=== PATIENT | female | born 1960 | race Caucasian/White ===

== ENCOUNTER 2023-01-23 14:12 | Emergency (ER) | payer OTHER, SELFPAY ==
[2023-01-23] VITALS (25 sets, daily range): BP systolic 121–178; BP diastolic 64–96; PULSE 80–108; RESP 16; TEMP 37.2–38.7; O2SAT 88–96; BMI 35.0
[2023-01-23 14:49] LABS: Appearance Urine Cloudy (Clear); Bilirubin Urine Negative (Negative); Blood Urine 3+ (Negative); Color Urine Yellow (Yellow); Glucose Urine Negative (Negative); Ketones Urine Negative (Negative); Leukocyte Esterase Urine 3+ (Negative); Nitrite Urine Positive (Negative); Protein Urine 3+ (Negative); Specific Gravity Urine 1.015 (1.000-1.030); Urobilinogen Urine 0.2 (0.2-1.0); pH Urine 6.5 (5.0-8.5)
[2023-01-23 15:13] LABS: Bacteria Urine Many; WBC Urine >100 (0-5)
[2023-01-23 15:58] LABS: Lactate* 1.1 mmol/L (0.5-1.9)
--- NOTE | 2023-01-23 16:01 | ED.GENADULT ---
HPI - General Adult General Chief complaint: Flank Pain Stated complaint: Back Pain Time Seen by Provider: 01/23/23 14:47 History of Present Illness HPI narrative: Pt c/o bilateral flank pain, urinary frequency, urinary retention, chills, fever, and vomiting for about a week. Hx multiple UTIs, last dx UTI in December of 2022. Pt states symptoms usually resolve for a week after I take antibiotics and then I'm right back to having symptoms again . This has been repeating over the last two years. Denies hx kidney stones. 62-year-old woman presenting to the emergency department with complaint of frequency and low back pain. Does have a history of relatively frequent urinary tract infections although she notes that the last 1 she thought she had turned out to be negative urinalysis. Yesterday her stomach started to hurt. Subsequently has had increasing low back pain. This particularly worried her since she has never felt any of that with her urinary tract infections in the past. She does have frequency; less dysuria. She was particularly chilled yesterday evening. Has had some diarrhea recently. No measured fever Related Data Home Medications Medication Instructions Recorded Confirmed atorvastatin 10 mg tablet 10 mg PO DAILY 01/23/23 01/23/23 levothyroxine 100 mcg tablet 100 mcg PO DAILY 01/23/23 01/23/23 Allergies Allergy/AdvReac Type Severity Reaction Status Date / Time acetaminophen [From Vicodin] AdvReac Mild Nausea Verified 01/23/23 14:30 doxycycline AdvReac Mild Nausea Verified 01/23/23 14:30 hydrocodone [From Vicodin] AdvReac Mild Nausea Verified 01/23/23 14:30 Review of Systems Status of ROS: Reports: 6 or more systems reviewed and unremarkable except as noted in History and below PFSH [facility] Social History Smoking Status: Never smoker Do you use any of these nicotine containing products: None Second hand tobacco smoke exposure: No How often do you have a drink containing alcohol: 2-3 times a week AUDIT-C Alcohol total score: 3 Non-prescribed substance use: denies use Exam Narrative: Exam Narrative: Pleasant. NAD other than looks a generally little uncomfortable. Face is a little flushed. Oropharynx is sticky. Lungs are clear. She has a lidocaine patch applied in the mid low back. She does not have tenderness about the SI joints. Abdomen is soft diffusely mildly comfortable/tender to palpation. Extremities are without edema. She is well-perfused. Heart is in an elevated rate but regular rhythm. Lungs are clear. Cranial nerves 2-12 intact. Breathing easily and easily conversant. Const: Vital Signs, click to edit/add: Vital Signs - 24 hr 01/23/23 14:24 01/23/23 15:44 01/23/23 15:45 Temperature 101.6 F H Pulse Rate 98 95 Pulse Rate [Pulse Oximeter] 108 H Respiratory Rate 16 Blood Pressure Blood Pressure [Ri ght Upper Arm] 178/79 H Pulse Oximetry 96 94 94 Oxygen Delivery Me thod Room Air 01/23/23 16:00 01/23/23 16:01 01/23/23 16:15 Temperature Pulse Rate 94 94 93 Pulse Rate [Pulse Oximeter] Respiratory Rate Blood Pressure 130/96 H Blood Pressure [Ri ght Upper Arm] Pulse Oximetry 91 94 88 Oxygen Delivery Me thod 01/23/23 16:30 01/23/23 16:31 01/23/23 16:32 Temperature Pulse Rate 92 89 91 Pulse Rate [Pulse Oximeter] Respiratory Rate Blood Pressure 129/68 Blood Pressure [Ri ght Upper Arm] Pulse Oximetry 90 91 89 Oxygen Delivery Me thod 01/23/23 16:41 01/23/23 16:45 01/23/23 17:00 Temperature 98.9 F Pulse Rate 92 85 Pulse Rate [Pulse Oximeter] Respiratory Rate Blood Pressure Blood Pressure [Ri ght Upper Arm] Pulse Oximetry 89 91 Oxygen Delivery Me thod 01/23/23 17:01 01/23/23 17:02 01/23/23 17:15 Temperature Pulse Rate 85 84 87 Pulse Rate [Pulse Oximeter] Respiratory Rate Blood Pressure 132/71 Blood Pressure [Ri ght Upper Arm] Pulse Oximetry 90 92 94 Oxygen Delivery Me thod 01/23/23 17:30 01/23/23 17:31 01/23/23 17:45 Temperature Pulse Rate 84 81 85 Pulse Rate [Pulse Oximeter] Respiratory Rate Blood Pressure 130/67 Blood Pressure [Ri ght Upper Arm] Pulse Oximetry 90 93 93 Oxygen Delivery Me thod 01/23/23 18:00 01/23/23 18:01 01/23/23 18:15 Temperature Pulse Rate 83 82 82 Pulse Rate [Pulse Oximeter] Respiratory Rate Blood Pressure 124/67 Blood Pressure [Ri ght Upper Arm] Pulse Oximetry 92 91 94 Oxygen Delivery Me thod 01/23/23 18:30 01/23/23 18:31 01/23/23 18:32 Temperature Pulse Rate 82 82 82 Pulse Rate [Pulse Oximeter] Respiratory Rate Blood Pressure 121/64 Blood Pressure [Ri ght Upper Arm] Pulse Oximetry 90 93 92 Oxygen Delivery Me thod 01/23/23 18:45 Temperature Pulse Rate 80 Pulse Rate [Pulse Oximeter] Respiratory Rate Blood Pressure Blood Pressure [Ri ght Upper Arm] Pulse Oximetry 91 Oxygen Delivery Me thod Documenting provider has reviewed patient's vital signs: yes Course Vital Signs Vital signs: Initial Vital Signs Temperature 101.6 F H 01/23/23 14:24 Temperature Source Temporal Artery Scan 01/23/23 14:24 Pulse Rate 108 H 01/23/23 14:24 Respiratory Rate 16 01/23/23 14:24 Blood Pressure 178/79 H 01/23/23 14:24 Blood Pressure Mean 112 H 01/23/23 14:24 Blood Pressure Position Sitting 01/23/23 14:24 Pulse Oximetry 96 01/23/23 14:24 Oxygen Delivery Method Room Air 01/23/23 14:24 Vital Signs Temperature 101.6 F H 01/23/23 14:24 Pulse Rate 108 H 01/23/23 14:24 Respiratory Rate 16 01/23/23 14:24 Blood Pressure 178/79 H 01/23/23 14:24 Pulse Oximetry 96 01/23/23 14:24 Oxygen Delivery Method Room Air 01/23/23 14:24 Temperature 98.9 F 01/23/23 16:41 Pulse Rate 80 01/23/23 18:45 Respiratory Rate 16 01/23/23 14:24 Blood Pressure 121/64 01/23/23 18:31 Pulse Oximetry 91 01/23/23 18:45 Oxygen Delivery Method Room Air 01/23/23 14:24 Medical Decision Making MDM Narrative Medical decision making narrative: Certainly has symptoms consistent with urinary tract infection. Would have concerns of pyelonephritis possibly sepsis. Blood and urine cultures will be obtained. IV fluids antiemetic. She would like something for pain. Given lower dose ketorolac as well as morphine. White count moderately elevated. Vitals improved after hydration and treatment as above. Overall feeling ?better?. Initial lactate was normal Urinalysis clearly positive. Given IV Rocephin as I do think urine is likely source. Initiated on ciprofloxacin as well. We did look for past urine cultures and sensitivities. There was strep B mentioned in a note that was located from [facility] from a couple months ago as well as resistance to Macrobid understandably. Unable to find further sensitivity or more culture information. Lab Data Lab results reviewed: Yes I reviewed the patient's lab results Labs: Lab Results 01/23/23 01/23/23 Range/Units 14:35 15:35 WBC 13.43 H (4.50-11.00) K/uL RBC 4.72 (4.00-5.20) m/uL Hgb 14.1 (12.0-16.0) gm/dL Hct 41.8 (33.0-51.0) % MCV 89 (80-100) fL MCH 30 (26-34) pg MCHC 34 (32-36) gm/dL RDW Coeff of Gabrielle 13.1 (11.5-15.5) % Plt Count 229 (140-440) K/uL Neut % (Auto) 81.3 H (42.0-72.0) % Lymph % (Auto) 9.8 L (20-44) % [place] % (Auto) 8.4 (0.0-11.0) % Eos % (Auto) 0.1 (0.0-7.0) % Baso % (Auto) 0.2 (0.0-3.0) % Neut # (Auto) 10.90 H (1.7-7.0) K/uL Lymph # (Auto) 1.30 (0.90-2.90) K/uL [place] # (Auto) 1.10 H (0.00-0.90) K/UL Eos # (Auto) 0.00 (0.00-0.50) K/uL Baso # (Auto) 0.00 (0.00-0.30) K/uL Abs Immat Gran (auto) 0.00 (0.00-0.30) K/uL Imm/Tot Granulo (auto) 0.2 % Sodium 137 (135-149) mmol/L Potassium 3.5 L (3.6-5.1) mmol/L Chloride 102 (96-114) mmol/L Carbon Dioxide 24 (20-32) mmol/L BUN 12 (7-30) mg/dL Creatinine 0.9 (0.5-1.5) mg/dL Estimated Creat Clear 59.60 Estimated GFR 73 ml/min Glucose 118 H (60-115) mg/dL Lactate 1.1 (0.5-1.9) mmol/L Calcium 9.1 (8.4-10.6) mg/dL Total Bilirubin 1.5 (0.1-1.5) mg/dL Direct Bilirubin 0.3 (0.0-0.5) mg/dL AST 37 H (12-35) U/L ALT 28 (4-35) U/L Alkaline Phosphatase 119 (40-150) U/L C-Reactive Protein 8.9 H (0.5-1.0) mg/dL Total Protein 7.5 (6.0-8.3) g/dL Albumin 4.3 (3.3-5.0) g/dL Urine Color Yellow (Yellow) Urine Appearance Cloudy A (Clear) Urine pH 6.5 (5.0-8.5) Ur Specific [place] 1.015 (1.000-1.030) Urine Protein 3+ A (Negative) Urine Glucose (UA) Negative (Negative) Urine Ketones Negative (Negative) Urine Blood 3+ A (Negative) Urine Nitrite Positive A (Negative) Urine Bilirubin Negative (Negative) Urine Urobilinogen 0.2 (0.2-1.0) Ur Leukocyte Esterase 3+ A (Negative) Urine RBC 5-10 A (0-2) Urine WBC >100 A (0-5) Ur Squamous Epith Cells None (None-Few) Urine Bacteria Many A (None) Discharge Plan Discharge Clinical Impression: UTI (urinary tract infection), Pyelonephritis Patient Disposition: Home w/ Parent or Adult Condition: Improved Instructions: Urinary Tract Infection in Women (ED) Additional Instructions: Important to hydrate. Choose unsugared/unsweetened drinks, like water! Can take up to 800 mg of ibuprofen or up to 1000 mg of acetaminophen per dose. Alternative to the ibuprofen might be up to 500 mg of naproxen 2 times daily. Blood and urine cultures will be pending here. Ciprofloxacin (take for 8 days) and Zofran (if you want) from [facility]. Return for increasing and persistent fever, vomiting, marked increase in pain. Prescriptions: No Action atorvastatin 10 mg tablet 10 mg PO DAILY levothyroxine 100 mcg tablet 100 mcg PO DAILY Follow Up/Referrals: Cristela Chapman MD [Primary Care Provider] - Stand Alone Forms: [id number] Info Instructions
[2023-01-23 16:02] LABS: Basophils Percent Auto 0.2 % (0.0-3.0); Eosinophils Percent Auto 0.1 % (0.0-7.0); Hematocrit 41.8 % (33.0-51.0); Hemoglobin* 14.1 gm/dL (12.0-16.0); Immature Granulocytes Pct Auto 0.2 %; Lymphocytes Percent Auto 9.8 % (20-44); Mean Corpuscular HGB Conc 34 gm/dL (32-36); Mean Corpuscular Hemoglobin 30 pg (26-34); Mean Corpuscular Volume 89 fL (80-100); Monocytes Percent Auto 8.4 % (0.0-11.0); Neutrophils Percent Auto 81.3 % (42.0-72.0); Platelet Count* 229 K/uL (140-440); RDW Coefficient of Variation % 13.1 % (11.5-15.5); Red Blood Count 4.72 m/uL (4.00-5.20); White Blood Count* 13.43 K/uL (4.50-11.00)
[2023-01-23] MEDS: MORPHINE 4 MG/ML INJ IVP (16:02)
[2023-01-23] MEDS: ONDANSETRON 2 MG/ML inj 4 MG IVP (16:03)
[2023-01-23] MEDS: KETOROLAC 15 MG/ML inj IVP (16:03)
[2023-01-23] MEDS: 0.9 % SODIUM CHLORIDE 1000 ml 1,000 ML IV ×2 (16:03→17:11)
[2023-01-23 16:06] LABS: Slide Review Reflex No
[2023-01-23 16:17] LABS: Albumin* 4.3 g/dL (3.3-5.0); Chloride* 102 mmol/L (96-114); Sodium* 137 mmol/L (135-149)
[2023-01-23 16:18] LABS: Potassium* 3.5 mmol/L (3.6-5.1)
[2023-01-23 16:20] LABS: Creatinine* 0.9 mg/dL (0.5-1.5); Estimated Glomerular Filt Rate 73 ml/min
[2023-01-23 16:21] LABS: Alanine Aminotransferase* 28 U/L (4-35); Alkaline Phosphatase* 119 U/L (40-150); Aspartate Amino Transferase* 37 U/L (12-35); Bilirubin Direct* 0.3 mg/dL (0.0-0.5); Bilirubin Total* 1.5 mg/dL (0.1-1.5); Blood Urea Nitrogen* 12 mg/dL (7-30); Calcium* 9.1 mg/dL (8.4-10.6); Carbon Dioxide* 24 mmol/L (20-32); Glucose* 118 mg/dL (60-115); Total Protein* 7.5 g/dL (6.0-8.3)
[2023-01-23 16:23] LABS: C Reactive Protein* 8.9 mg/dL (0.5-1.0)
[2023-01-23] MEDS: cefTRIAXone 1 GM in 0.9 % SODIUM CHLORIDE Mini-bag 100 ML IVPB (17:11)
[2023-01-23] MEDS: CIPROFLOXACIN 500 MG TABLET PO (18:55)
== END 2023-01-23 18:55 | disposition home or self-care (01) ==
PROVIDERS: Emergency Provider Family Medicine; PCP Family Medicine
DX: N39.0 Urinary tract infection, site not specified (principal); N12 Tubulo-interstitial nephritis, not specified as acute or chronic
CPT/HCPCS: 36415; 80048; 80076; 81001; 83605; 85025; 86140; 87040; 87086; 87186; 94761; 96365; 96375; 99284; A9270; J0696; J1885; J2270; J2405; J7030

== ENCOUNTER 2023-03-26 16:27 | Emergency (ER) | payer OTHER, SELFPAY ==
[2023-03-26] VITALS (19 sets, daily range): BP systolic 98–180; BP diastolic 57–87; PULSE 50–72; RESP 14–19; TEMP 36.6; O2SAT 93–100; BMI 34.2
--- NOTE | 2023-03-26 | CRLHL7_ITS ---
For Patients: As a result of the Century Cures Act, medical imaging exams and procedure reports are released immediately into your electronic medical record. You may view this report before your referring provider. If you have questions, please contact your health care provider. INDICATION: Postreduction TECHNIQUE: X-ray left ankle, three views COMPARISON: X-ray left ankle earlier same day 08/26/2022 FINDINGS/IMPRESSION: Improved alignment tibiotalar joints. Also improved alignment of the comminuted fracture the distal fibula and tibia. Dictated by Cindy Grace MD @ 03/26/2023 7:25:17 PM (Electronically Signed)
--- NOTE | 2023-03-26 | CRLHL7_ITS ---
For Patients: As a result of the Cures Act, medical imaging exams and procedure reports are released immediately into your electronic medical record. You may view this report before your referring provider. If you have questions, please contact your health care provider. INDICATION: Ankle fracture, post reduction TECHNIQUE: X-ray left ankle, three views COMPARISON: None available FINDINGS/IMPRESSION: Overlying casting material is present. Otherwise no change in the distal tibia and fibula fractures. Dictated by Cindy Grace MD @ 03/26/2023 8:20:20 PM Dictated by: Cindy Grace MD @ 03/26/2023 20:21:08 (Electronically Signed)
--- NOTE | 2023-03-26 16:37 | CRLHL7_ITS ---
For Patients: As a result of the Century Cures Act, medical imaging exams and procedure reports are released immediately into your electronic medical record. You may view this report before your referring provider. If you have questions, please contact your health care provider. INDICATION: Injury COMPARISON: Same-day left ankle radiograph. TECHNIQUE: Three views right ankle. FINDINGS: BONES: Transverse fracture through the fibular tip, well below the level of the plafond. The fracture is nondisplaced. No other fracture. Normal mineralization. No focal bone lesion. JOINT: Normal ankle joint alignment. No ankle joint effusion. Joint spaces: Normal. SOFT TISSUES: Expected soft tissue swelling. No foreign body. IMPRESSION: Nondisplaced right fibular tip avulsion fracture. Dictated by Maria M Roca MD @ 03/26/2023 5:28:32 PM (Electronically Signed)
--- NOTE | 2023-03-26 16:37 | CRLHL7_ITS ---
For Patients: As a result of the Cures Act, medical imaging exams and procedure reports are released immediately into your electronic medical record. You may view this report before your referring provider. If you have questions, please contact your health care provider. INDICATION: Injury COMPARISON: Same day right ankle radiograph TECHNIQUE: Two views left ankle. FINDINGS: BONES: Significantly displaced and angulated distal tibial fracture with intra-articular extension. Significantly displacing angulated distal fibular fracture. Abnormal tibiotalar articulation, not ideally profiled. Normal mineralization. No focal bone lesion. SOFT TISSUES: Significant soft tissue swelling. No foreign body. IMPRESSION: Left ankle fracture dislocation involving the distal tibia and fibula. These fractures are not ideally profiled on the provided views. Dictated by Maria M Roca MD @ 03/26/2023 5:30:43 PM (Electronically Signed)
[2023-03-26] MEDS: 0.9 % SODIUM CHLORIDE 1000 ml 1,000 ML IV (16:52)
[2023-03-26] MEDS: MORPHINE 4 MG/ML INJ IVP ×2 (16:52→17:32)
[2023-03-26] MEDS: ONDANSETRON 2 MG/ML inj 4 MG IVP (17:32)
[2023-03-26] MEDS: PROPOFOL 10 MG/ML INJ 200 MG IVP (17:38)
--- NOTE | 2023-03-26 17:47 | CRLHL7_ITS ---
For Patients: As a result of the Century Cures Act, medical imaging exams and procedure reports are released immediately into your electronic medical record. You may view this report before your referring provider. If you have questions, please contact your health care provider. INDICATION: Post reduction. TECHNIQUE: Left ankle three-view is. Permanently recorded images are archived. COMPARISON: Left ankle radiographs from earlier the same day. FINDINGS/IMPRESSION : Interval casting of the left ankle, which obscures fine osseous detail. Redemonstrated comminuted and displaced fractures of the distal tibia and fibula. Alignment appears near anatomic on the frontal image; however, there is persistent posterior subluxation of the talus relative to the tibia on the lateral image. Soft tissue swelling about the ankle. Consider CT for further evaluation. Dictated by Jerad Kim MD @ 03/26/2023 6:33:36 PM (Electronically Signed)
--- NOTE | 2023-03-26 18:28 | ED.NURSE ---
Per xray ankle was not fully reduced, will try 2nd attempt at reduction of left ankle with sedation.
--- NOTE | 2023-03-26 19:09 | ED_ITS ---
HPI - General Adult General Date Seen: 03/26/23 <Berna Oliveira MD - Last Filed: 03/26/23 21:28> Chief complaint: Extremity Pain/Injury, Lower <Berna Oliveira MD - Last Filed: 03/26/23 21:28> Stated complaint: L ankle injury <MD Brian Oakley Last Filed: 03/26/23 21:28> Time Seen by Provider: 03/26/23 16:30 <Berna Oliveira MD - Last Filed: 03/26/23 21:28> Source: patient <Berna Oliveira MD - Last Filed: 03/26/23 21:28> Mode of arrival: EMS <MD Brian Oakley Last Filed: 03/26/23 21:28> Limitations: no limitations <MD Brian Oakley Last Filed: 03/26/23 21:28> History of Present Illness HPI narrative: Patient is a generally healthy 62-year-old woman who presents after ankle injury. She says she was not watching where she was going and stepped off the curb funny. She sustained significant the injury to the left ankle but also feels that the right ankle is little swollen. Denies other injuries such as head or neck injury. No anticoagulation. <Berna Oliveira MD - Last Filed: 03/26/23 21:28> Related Data Home medications: Home Medications Medication Instructions Recorded Confirmed atorvastatin 10 mg tablet 10 mg PO DAILY 01/23/23 01/23/23 levothyroxine 100 mcg tablet 100 mcg PO DAILY 01/23/23 01/23/23 <Berna Oliveira MD - Last Filed: 03/26/23 21:28> Allergies/adverse reactions: Allergies Allergy/AdvReac Type Severity Reaction Status Date / Time acetaminophen [From Vicodin] AdvReac Mild Nausea Verified 01/23/23 14:30 doxycycline AdvReac Mild Nausea Verified 01/23/23 14:30 hydrocodone [From Vicodin] AdvReac Mild Nausea Verified 01/23/23 14:30 <Berna Oliveira MD - Last Filed: 03/26/23 21:28> Review of Systems Status of ROS: Reports: 6 or more systems reviewed and unremarkable except as noted in History and below <Berna Oliveira MD - Last Filed: 03/26/23 21:28> [facility] Social History: Social History Smoking Status: Never smoker Do you use any of these nicotine containing products: None Second hand tobacco smoke exposure: No How often do you have a drink containing alcohol: 2-3 times a week AUDIT-C Alcohol total score: 3 Non-prescribed substance use: denies use <Berna Oliveira MD - Last Filed: 03/26/23 21:28> Exam Narrative: Exam Narrative: Vital signs reviewed In general, alert, cooperative and well appearing woman. Normocephalic, atraumatic. Neck: Supple, nontender to palpation. Heart: Regular rate and rhythm Lungs: Clear Extremities: The left ankle is notable for significant deformity, distal CMS in tact. No overlying laceration, small abrasion noted. On the right, she has some mild swelling over the lateral malleolus. Upper extremities atraumatic. <Berna Oliveira MD - Last Filed: 03/26/23 21:28> Const: Vital Signs, click to edit/add: Vital Signs - 24 hr 03/26/23 16:35 03/26/23 16:37 03/26/23 16:57 Temperature 97.9 F Pulse Rate 57 L Pulse Rate [Right Pulse Oximeter] 65 Respiratory Rate 18 Blood Pressure Blood Pressure [Ri ght Upper Arm] 180/87 H Pulse Oximetry 98 97 94 Oxygen Delivery Me thod Room Air 03/26/23 17:00 03/26/23 17:15 03/26/23 17:30 Temperature Pulse Rate 50 L 61 63 Pulse Rate [Right Pulse Oximeter] Respiratory Rate Blood Pressure Blood Pressure [Ri ght Upper Arm] Pulse Oximetry 95 97 98 Oxygen Delivery Me thod 03/26/23 17:45 03/26/23 17:47 03/26/23 17:50 Temperature Pulse Rate 61 57 L 62 Pulse Rate [Right Pulse Oximeter] Respiratory Rate 19 14 19 Blood Pressure 107/57 L 107/63 Blood Pressure [Ri ght Upper Arm] Pulse Oximetry 95 97 93 Oxygen Delivery Me thod 03/26/23 17:52 03/26/23 17:59 03/26/23 18:00 Temperature Pulse Rate 63 61 63 Pulse Rate [Right Pulse Oximeter] Respiratory Rate Blood Pressure 125/76 134/74 Blood Pressure [Ri ght Upper Arm] Pulse Oximetry 97 98 97 Oxygen Delivery Me thod 03/26/23 18:15 03/26/23 18:30 03/26/23 18:33 Temperature Pulse Rate 60 64 72 Pulse Rate [Right Pulse Oximeter] Respiratory Rate 17 Blood Pressure 141/64 H Blood Pressure [Ri ght Upper Arm] Pulse Oximetry 96 96 97 Oxygen Delivery Me thod 03/26/23 18:42 03/26/23 18:45 03/26/23 18:46 Temperature Pulse Rate 60 61 64 Pulse Rate [Right Pulse Oximeter] Respiratory Rate 19 17 18 Blood Pressure 109/72 98/65 Blood Pressure [Ri ght Upper Arm] Pulse Oximetry 100 100 100 Oxygen Delivery Me thod 03/26/23 18:49 Temperature Pulse Rate 62 Pulse Rate [Right Pulse Oximeter] Respiratory Rate 19 Blood Pressure 123/68 Blood Pressure [Ri ght Upper Arm] Pulse Oximetry 100 Oxygen Delivery Me thod <Berna Oliveira MD - Last Filed: 03/26/23 21:28> Vital Signs, click to edit/add: Vital Signs - 24 hr 03/26/23 16:35 03/26/23 16:37 03/26/23 16:57 Temperature 97.9 F Pulse Rate 57 L Pulse Rate [Right Pulse Oximeter] 65 Respiratory Rate 18 Blood Pressure Blood Pressure [Ri ght Upper Arm] 180/87 H Pulse Oximetry 98 97 94 Oxygen Delivery Me thod Room Air 03/26/23 17:00 03/26/23 17:15 03/26/23 17:30 Temperature Pulse Rate 50 L 61 63 Pulse Rate [Right Pulse Oximeter] Respiratory Rate Blood Pressure Blood Pressure [Ri ght Upper Arm] Pulse Oximetry 95 97 98 Oxygen Delivery Me thod 03/26/23 17:45 03/26/23 17:47 03/26/23 17:50 Temperature Pulse Rate 61 57 L 62 Pulse Rate [Right Pulse Oximeter] Respiratory Rate 19 14 19 Blood Pressure 107/57 L 107/63 Blood Pressure [Ri ght Upper Arm] Pulse Oximetry 95 97 93 Oxygen Delivery Me thod 03/26/23 17:52 03/26/23 17:59 03/26/23 18:00 Temperature Pulse Rate 63 61 63 Pulse Rate [Right Pulse Oximeter] Respiratory Rate Blood Pressure 125/76 134/74 Blood Pressure [Ri ght Upper Arm] Pulse Oximetry 97 98 97 Oxygen Delivery Me thod 03/26/23 18:15 03/26/23 18:30 03/26/23 18:33 Temperature Pulse Rate 60 64 72 Pulse Rate [Right Pulse Oximeter] Respiratory Rate 17 Blood Pressure 141/64 H Blood Pressure [Ri ght Upper Arm] Pulse Oximetry 96 96 97 Oxygen Delivery Me thod 03/26/23 18:42 03/26/23 18:45 03/26/23 18:46 Temperature Pulse Rate 60 61 64 Pulse Rate [Right Pulse Oximeter] Respiratory Rate 19 17 18 Blood Pressure 109/72 98/65 Blood Pressure [Ri ght Upper Arm] Pulse Oximetry 100 100 100 Oxygen Delivery Me thod 03/26/23 18:49 Temperature Pulse Rate 62 Pulse Rate [Right Pulse Oximeter] Respiratory Rate 19 Blood Pressure 123/68 Blood Pressure [Ri ght Upper Arm] Pulse Oximetry 100 Oxygen Delivery Me thod <Fadumo Hodge MD - Last Filed: 03/27/23 20:49> Course Course ED Course: An IV was placed she was given a total of 8 mg of morphine for pain control as well as 4 mg of Zofran. X-rays were obtained showing a comminuted fracture dislocation of the left ankle. She has a nondisplaced fracture of the distal right fibula. Confirmed by final radiology read. I recommended sedation for reduction of the left ankle, risks and benefits were discussed including over-sedation, need for airway management, aspiration, damage to arteries and nerves, failure to reduce. She agreed to proceed, consent was signed. Procedure note: Dr. Driscoll provided sedation, please see her note for details. Patient was given propofol, an initial attempt at reduction was made, she was splinted, and awakened without difficulty. Splinted using posterior and U splint with Ortho Glass and 3 [place] wraps. Unfortunately, post reduction x-ray showed failure to reduce the AP component of the tibia on the talus.. Therefore, I recommended that we do a 2nd bolus of propofol and try again. On 2nd attempt, we got her more relaxed and I was able to reduce the fracture, con firmed with an x-ray during the procedure that this had been better position and, and splint was reapplied. Post reduction x-rays show stable reduction of the fracture. She is feeling well, no current complaints. Distal CMS is normal. I spoke with Orthopedics about this patient as she has a nondisplaced distal fibula fracture on the right and a complex fracture on the left that will require strict nonweightbearing. I was concerned about putting her in a boot and then having her try to walk just on the boot and crutches, so instead were going to put her in a stirrup splint to support the right ankle, then she will be non weight-bearing on the left. Advised her to elevate the left leg as much as possible over the next couple of days, we made an orthopedic follow-up visit for her. I prescribed oxycodone, 8 tablets along with Zofran. She historically has had problems with nausea with narcotics, so discussed with her she can certainly start with ibuprofen and/or Tylenol and see if that provides adequate relief for her. Return to the ER as needed. <Berna Oliveira MD - Last Filed: 03/26/23 21:28> Vital Signs Vital signs: Initial Vital Signs Temperature 97.9 F 03/26/23 16:35 Temperature Source Temporal Artery Scan 03/26/23 16:35 Pulse Rate 65 03/26/23 16:35 Respiratory Rate 18 03/26/23 16:35 Blood Pressure 180/87 H 03/26/23 16:35 Blood Pressure Mean 118 H 03/26/23 16:35 Blood Pressure Position Sitting 03/26/23 16:35 Pulse Oximetry 98 03/26/23 16:35 Oxygen Delivery Method Room Air 03/26/23 16:35 Vital Signs Temperature 97.9 F 03/26/23 16:35 Pulse Rate 65 03/26/23 16:35 Respiratory Rate 18 03/26/23 16:35 Blood Pressure 180/87 H 03/26/23 16:35 Pulse Oximetry 98 03/26/23 16:35 Oxygen Delivery Method Room Air 03/26/23 16:35 Temperature 97.9 F 03/26/23 16:35 Pulse Rate 62 03/26/23 18:49 Respiratory Rate 19 03/26/23 18:49 Blood Pressure 123/68 03/26/23 18:49 Pulse Oximetry 100 03/26/23 18:49 Oxygen Delivery Method Room Air 03/26/23 16:35 <Berna Oliveira MD - Last Filed: 03/26/23 21:28> Initial Vital Signs Temperature 97.9 F 03/26/23 16:35 Temperature Source Temporal Artery Scan 03/26/23 16:35 Pulse Rate 65 03/26/23 16:35 Respiratory Rate 18 03/26/23 16:35 Blood Pressure 180/87 H 03/26/23 16:35 Blood Pressure Mean 118 H 03/26/23 16:35 Blood Pressure Position Sitting 03/26/23 16:35 Pulse Oximetry 98 03/26/23 16:35 Oxygen Delivery Method Room Air 03/26/23 16:35 Vital Signs Temperature 97.9 F 03/26/23 16:35 Pulse Rate 65 03/26/23 16:35 Respiratory Rate 18 03/26/23 16:35 Blood Pressure 180/87 H 03/26/23 16:35 Pulse Oximetry 98 03/26/23 16:35 Oxygen Delivery Method Room Air 03/26/23 16:35 Temperature 97.9 F 03/26/23 16:35 Pulse Rate 62 03/26/23 18:49 Respiratory Rate 19 03/26/23 18:49 Blood Pressure 123/68 03/26/23 18:49 Pulse Oximetry 100 03/26/23 18:49 Oxygen Delivery Method Room Air 03/26/23 16:35 <Fadumo Hodge MD - Last Filed: 03/27/23 20:49> Discharge Plan Discharge Clinical Impression: Closed fracture of distal end of right fibula, Closed fracture dislocation of left ankle joint <Berna Oliveira MD - Last Filed: 03/26/23 21:28> Patient Disposition: Home, Self-Care <Berna Oliveira MD - Last Filed: 03/26/23 21:28> Condition: Improved <Berna Oliveira MD - Last Filed: 03/26/23 21:28> Instructions: Ankle Fracture (DC), Ankle Dislocation (ED) <Berna Oliveira MD - Last Filed: 03/26/23 21:28> Additional Instructions: Crutches, nonweightbearing left leg. Orthopedic follow-up this week. Ibuprofen and/or Tylenol as needed 3 times daily for pain. Oxycodone if needed for uncontrolled pain. Zofran if needed for nausea. <Berna Oliveira MD - Last Filed: 03/26/23 21:28> Activity Level: No Restrictions <Berna Oliveira MD - Last Filed: 03/26/23 21:28> No Restrictions <Fadumo Hodge MD - Last Filed: 03/27/23 20:49> Discharge Diet: Regular <Berna Oliveira MD - Last Filed: 03/26/23 21:28> Regular <Fadumo Hodge MD - Last Filed: 03/27/23 20:49> Prescriptions: No Action atorvastatin 10 mg tablet 10 mg PO DAILY levothyroxine 100 mcg tablet 100 mcg PO DAILY <Berna Oliveira MD - Last Filed: 03/26/23 21:28> Follow Up/Referrals: Cristela Chapman MD [Primary Care Provider] - <Berna Oliveira MD - Last Filed: 03/26/23 21:28> Stand Alone Forms: [employer] Info Instructions <Berna Oliveira MD - Last Filed: 03/26/23 21:28> Procedures Procedural Sedation Pre procedure diagnosis: Ankle fracture with dislocation <Fadumo Hodge MD - Last Filed: 03/27/23 20:49> Post procedure diagnosis: Same, reduction performed <Fadumo Hdoge MD - Last Filed: 03/27/23 20:49> Written consent by: patient <Fadumo Hodge MD - Last Filed: 03/27/23 20:49> Verification/time out: correct patient, correct site and correct procedure <Fadumo Carrizales MD - Last Filed: 03/27/23 20:49> Name of person perfmorming the procedure: Berna Oliveira <Fadumo Hodge MD - Last Filed: 03/27/23 20:49> Sedation provider same as procedural provider: No (Sedation was provided by myself Dr. Driscoll) <Fadumo Hodge MD - Last Filed: 03/27/23 20:49> Assistants, if any: Patient's nurse Les <Fadumo Hodge MD - Last Filed: 03/27/23 20:49> Indication: fracture/dislocation reduction <Fadumo Hodge MD - Last Filed: 03/27/23 20:49> Presedation Evaluation: Patient found to be satisfactory for conscious sedation with propofol fall. <Fadumo Hodge MD - Last Filed: 03/27/23 20:49> Preparation: monitoring engineer applied, pulse oximeter, capnometry used, supplemental O2 applied, suction/airway equipment at bedside and IV secured <Fadumo Carrizales MD - Last Filed: 03/27/23 20:49> IV Propofol dose (mg): 230 (Initially 80 was given with the 1st attempt at sedation. Second sedation, patient was given 60 mg IV initially and then 10 in 20 mg aliquots for a total dosage of 150 mg IV.) <Fadumo Hodge MD - Last Filed: 03/27/23 20:49> Patient Tolerated Procedure: well <Fadumo Hodge MD - Last Filed: 03/27/23 20:49> Complications: hypoventilation (With the 1st sedation, patient had brief hyperventilation which was supported with bag mask and increasing oxygen for less than 60 seconds. Facemask oxygen as well as nasal cannula oxygen was given during the 2nd sedation and patient had no respiratory issues.) <Fadumo Hodge MD - Last Filed: 03/27/23 20:49> Interventions: oxygen applied and assist by BVM <Fadumo Hodge MD - Last Filed: 03/27/23 20:49> Additional Comments: Two sedation attempts word done. The 1st 1 with the 80 mg with the pa tient had brief hypoventilation in brief hypoxia rebounding within 30 seconds and cessation supplement a breathing within a minute. Unfortunately, the reduction was not completely successful and a 2nd attempt was made. That time patient was given initial 60 mg IV bolus and then small boluses of 20 or 10 mg IV propofol were given, a total of 150 mg was given during that sedation attempt. Patient was given nasal cannula oxygen as well as face mask oxygen during that sedation and tolerated fine. Throughout both she had nasal cannula oxygen, IV obviously in place and pulse oximetry with capnography, blood pressure monitoring and cardiac monitoring throughout. She came out of the sedation quite nicely each time. <Fadumo Hodge MD - Last Filed: 03/27/23 20:49>
--- NOTE | 2023-03-26 20:36 | ED.NURSE ---
Pt was given instruction on how to use crutches. Was also given discharge, insty med scripts and also ortho appt date. reviewed discharge instructions in detail with sister and patient. Pt discharged in care of sister. No further questions for this nurse.
== END 2023-03-26 20:39 | disposition home or self-care (01) ==
PROVIDERS: Emergency Provider Emergency Medicine; PCP Family Medicine
DX: S82.831A Other fracture of upper and lower end of right fibula, initial encounter for closed fracture (principal); X50.1XXA Overexertion from prolonged static or awkward postures, initial encounter; S82.62XA Displaced fracture of lateral malleolus of left fibula, initial encounter for closed fracture
CPT/HCPCS: 27825; 73600; 73610; 94761; 96374; 96375; 96376; 99156; 99284; 99291; J2270; J2405; J2704; J7030

== ENCOUNTER 2023-03-27 20:53 | Emergency (ER) | payer OTHER, SELFPAY ==
[2023-03-27 21:04] VITALS: BP 180/86; PULSE 67; RESP 16; TEMP 37; O2SAT 96; BMI 34.2
--- NOTE | 2023-03-27 21:09 | ED_ITS ---
HPI - General Adult General Date Seen: 03/27/23 Chief complaint: Nausea/Vomiting Stated complaint: nausea Time Seen by Provider: 03/27/23 21:00 Source: patient Mode of arrival: ambulatory Limitations: no limitations History of Present Illness HPI narrative: Patient is a 62-year-old who I saw yesterday here with a fracture dislocation of her left ankle, did sedation and reduction, send her home with oxycodone and Zofran. She had reported that she has had problems with vomiting with hydrocodone in the past, but thought that she did okay with the addition of Zofran. She says she took oxycodone last night again this morning and has been vomiting nonstop despite the Zofran that I prescribed. Her ankle actually is feeling pretty good. She does not have any other complaints. No diarrhea. Related Data Home Medications Medication Instructions Recorded Confirmed atorvastatin 10 mg tablet 10 mg PO DAILY 01/23/23 03/28/23 levothyroxine 100 mcg tablet 100 mcg PO DAILY 01/23/23 03/28/23 multivitamin (Multiple Vitamins 1 tab PO QDAY 03/28/23 03/28/23 tablet) Previous Rx's Medication Instructions Recorded Knee Scooter- Adult #1 ea 03/28/23 Allergies Allergy/AdvReac Type Severity Reaction Status Date / Time acetaminophen [From Vicodin] AdvReac Mild Nausea Verified 03/28/23 10:42 doxycycline AdvReac Mild Nausea Verified 03/28/23 10:42 hydrocodone [From Vicodin] AdvReac Mild Nausea Verified 03/28/23 10:42 oxycodone AdvReac Nausea Verified 03/28/23 10:42 PFSH PFSH Surgical History (Updated 03/28/23 @ 10:43 by Beti Moctezuma ~ [facility], [facility]) History of tubal ligation (1983) ?Z98.51 - Tubal ligation status (ICD-10) History of open reduction and internal fixation (ORIF) procedure (2010) ?Z98.890 - Other specified postprocedural states (ICD-10) Social History (Updated 03/28/23 @ 10:44 by Beti Moctezuma ~ [facility], [facility]) Smoking Status: Former smoker What tobacco products do you use: cigarettes Smoking quit date/years: >15 years ago Do you use any of these nicotine containing products: None Second hand tobacco smoke exposure: No How often do you have a drink containing alcohol: 2-3 times a week AUDIT-C Alcohol total score: 3 Non-prescribed substance use: denies use Exam Narrative: Exam Narrative: Vital signs as noted above. In general, an alert, well-appearing patient. Head: Normocephalic, atraumatic. Eyes: Pupils are equal reactive. Extraocular movements are full. Conjunctivae are normal. ENT: Mucous membranes are moist. Throat is normal. Neck: Supple without lymphadenopathy. Heart: Regular rate and rhythm. No murmur or rub. Lungs: Clear bilaterally. No increased work of breathing, crackles or wheezes. Abdomen: Soft and nontender. Extremities: Left lower extremity is in a Ryan Will splint, CMS looks good. On the right, we had sent her with a stirrup splint which she is not currently wearing. Continues to have some bruising and swelling over the lateral malleolus where she has a nondisplaced fracture. Neurologic: Patient is alert and oriented to person and place. Speech is fluent. Face is symmetric. Moves all extremities equally. Affect: Normal. Skin: Warm and dry. Well perfused. Const: Vital Signs, click to edit/add: Vital Signs - 24 hr 03/27/23 21:04 Temperature 98.6 F Pulse Rate [Pulse Oximeter] 67 Respiratory Rate 16 Blood Pressure [Le ft Upper Arm] 180/86 H Pulse Oximetry 96 Oxygen Delivery Me thod Room Air Documenting provider has reviewed patient's vital signs: yes Course Course ED Course: Vomiting presumably secondary to narcotics, benign abdominal exam, vital signs aside from some hypertension. Will go ahead and place an IV, try some Reglan, normal saline and see how she feels. Basic metabolic panel ordered as well. She had a L of saline, no further vomiting, continued to have some mild nausea in developed headache. I checked a COVID that was negative. Labs are unremarkable including normal electrolytes, BUN of 10, creatinine of 0.6, blood sugar of 120. She received a 2 L, some Toradol, is feeling improved. I think we will try an oral challenge and if she is able to keep some liquids down I think it is reasonable to let her go home. Would recommend avoidance of further narcotics, fortunately she says that she is not having a lot of pain in the ankle. Vital Signs Vital signs: Initial Vital Signs Temperature 98.6 F 03/27/23 21:04 Temperature Source Temporal Artery Scan 03/27/23 21:04 Pulse Rate 67 03/27/23 21:04 Pulse Rhythm Regular 03/27/23 21:04 Respiratory Rate 16 03/27/23 21:04 Blood Pressure 180/86 H 03/27/23 21:04 Blood Pressure Mean 117 H 03/27/23 21:04 Blood Pressure Position Sitting 03/27/23 21:04 Pulse Oximetry 96 03/27/23 21:04 Oxygen Delivery Method Room Air 03/27/23 21:04 Vital Signs Temperature 98.6 F 03/27/23 21:04 Pulse Rate 67 03/27/23 21:04 Respiratory Rate 16 03/27/23 21:04 Blood Pressure 180/86 H 03/27/23 21:04 Pulse Oximetry 96 03/27/23 21:04 Oxygen Delivery Method Room Air 03/27/23 21:04 Temperature 98.6 F 03/28/23 00:53 Pulse Rate 61 03/28/23 00:53 Respiratory Rate 14 03/28/23 00:53 Blood Pressure 158/75 H 03/28/23 00:53 Pulse Oximetry 96 03/27/23 21:04 Oxygen Delivery Method Room Air 03/27/23 21:04 Medical Decision Making Lab Data Labs: Lab Results 03/27/23 03/27/23 Range/Units 21:25 23:00 Sodium 139 (135-149) mmol/L Potassium 3.8 (3.6-5.1) mmol/L Chloride 103 (96-114) mmol/L Carbon Dioxide 29 (20-32) mmol/L Anion Gap 7 (7-15) mEq/L BUN 10 (7-30) mg/dL Creatinine 0.6 (0.5-1.5) mg/dL Estimated Creat Clear 59.60 Estimated GFR 102 ml/min Glucose 120 H (60-115) mg/dL Calcium 9.7 (8.4-10.6) mg/dL SARS-CoV-2 (PCR) Negative SARS-CoV-2 (Negative) Influenza Type A (PCR) Negative PCR FLU A (Negative) Influenza Type B (PCR) Negative PCR FLU B (Negative) RSV (PCR) Negative PCR RSV (Negative) Discharge Plan Discharge Clinical Impression: Vomiting Patient Disposition: Home, Self-Care Condition: Improved Instructions: Acute Nausea and Vomiting (ED) Additional Instructions: Recommend avoidance of narcotics, Zofran if needed for further nausea. Clear liquids today, advance as able. If you are unable to keep anything down despite Zofran and time, return to the emergency department. Otherwise, orthopedic follow-up as previously planned. Prescriptions: No Action multivitamin [Multiple Vitamins] Tablet 1 tab PO QDAY (DME) Knee Scooter- Adult Misc See Rx Instructions .Route Qty: 1 0RF Rx Instructions: As directed atorvastatin 10 mg tablet 10 mg PO DAILY levothyroxine 100 mcg tablet 100 mcg PO DAILY Follow Up/Referrals: Cristela Chapman MD [Primary Care Provider] - Stand Alone Forms: [employer] Info Instructions
[2023-03-27] MEDS: METOCLOPRAMIDE HCL 10 MG in 0.9 % SODIUM CHLORIDE 100 ml 100 ML 306 MG IVPB (21:23)
[2023-03-27] MEDS: 0.9 % SODIUM CHLORIDE 1000 ml 1,000 ML IV ×2 (21:23→23:05)
[2023-03-27 21:42] LABS: Chloride* 103 mmol/L (96-114); Potassium* 3.8 mmol/L (3.6-5.1); Sodium* 139 mmol/L (135-149)
[2023-03-27 21:45] LABS: Anion Gap 7 mEq/L (7-15); Blood Urea Nitrogen* 10 mg/dL (7-30); Carbon Dioxide* 29 mmol/L (20-32); Creatinine* 0.6 mg/dL (0.5-1.5); Estimated Glomerular Filt Rate 102 ml/min
[2023-03-27 21:46] LABS: Calcium* 9.7 mg/dL (8.4-10.6); Glucose* 120 mg/dL (60-115)
[2023-03-27] MEDS: KETOROLAC 15 MG/ML inj IVP (23:05)
[2023-03-27 23:55] LABS: PCR FLU A Negative PCR FLU A (Negative); PCR FLU B Negative PCR FLU B (Negative); PCR RSV Negative PCR RSV (Negative)
[2023-03-28 00:01] LABS: SARS PCR* Negative SARS-CoV-2 (Negative)
--- NOTE | 2023-03-28 00:49 | ED.NURSE ---
Juice provided, tolerating well.
[2023-03-28 00:53] VITALS: BP 158/75; PULSE 61; RESP 14; TEMP 37
== END 2023-03-28 00:59 | disposition home or self-care (01) ==
PROVIDERS: Emergency Provider Emergency Medicine; PCP Family Medicine
DX: R11.10 Vomiting, unspecified (principal)
CPT/HCPCS: 36415; 80048; 87631; 96365; 96375; 99284; J1885; J2765; J7030

== ENCOUNTER 2023-03-31 06:12 | Day surgery (SDC) | payer OTHER, SELFPAY ==
[2023-03-31] VITALS (16 sets, daily range): BP systolic 112–155; BP diastolic 67–81; PULSE 49–67; RESP 12–16; TEMP 36.1–37.3; O2SAT 92–99; BMI 31.4
[2023-03-31] MEDS: ACETAMINOPHEN 500 MG TABLET 1000 MG PO (06:45)
[2023-03-31] MEDS: SODIUM CHLORIDE 0.9 % (FLUSH) 10 ML SYRINGE IVF (06:45)
[2023-03-31] MEDS: LACTATED RINGERS 1000 ML 1,000 ML 100 ML IV ×2 (06:45→10:03)
[2023-03-31] MEDS: CELECOXIB 200 MG CAPSULE PO (06:45)
[2023-03-31] MEDS: fentaNYL 100 MCG/2 ML inj IVP (07:21)
[2023-03-31] MEDS: MIDAZOLAM HCL 1 MG/ML inj IVP (07:21)
--- NOTE | 2023-03-31 07:28 | SUR.PREOP ---
TIME?OUT:?0720 PT/RN/MDA?VERIFICATION?OF?SURGICAL?SITE,?PROCEDURE,?AND?CONSENT OBTAINED?PRIOR?TO?INVASIVE?PROCEDURE.
--- NOTE | 2023-03-31 07:45 | CRLHL7_ITS ---
For Patients: As a result of the Cures Act, medical imaging exams and procedure reports are released immediately into your electronic medical record. You may view this report before your referring provider. If you have questions, please contact your health care provider. Indication: ORIF LEFT ANKLE Technique: Four fluoroscopic images of the left ankle. Fluoroscopic time 83.2 seconds. IMPRESSION: Fluoroscopic guidance for open reduction internal fixation of left distal fibular fracture. Dictated by Jacob Hilton MD @ 03/31/2023 10:57:26 AM (Electronically Signed)
[2023-03-31] MEDS: CEFAZOLIN 2 GM INJ IVP (07:52)
--- NOTE | 2023-03-31 10:01 | SUR.OPER ---
DEBRIEF COMPLETED WITH SURGEON. PROCEDURE, EBL, SPECIMENS, AND CONCERNS CONFIRMED.
--- NOTE | 2023-03-31 10:06 | PM.ORPRC ---
Procedure Note Date of procedure: 03/31/23 Procedure: PREOPERATIVE DIAGNOSIS: Left ankle Poe B fracture dislocation POSTOPERATIVE DIAGNOSIS: Left ankle Poe B fracture dislocation, traumatic superficial peroneal nerve laceration NAME OF OPERATION: ORIF, superficial peroneal nerve repair SURGEON: Jeff Maguire MD TRANSPLANT SURGEON: Florencia Nichols PA-C ANESTHESIA: Spinal ESTIMATED BLOOD LOSS: 0 mL COMPLICATIONS: None SPECIMENS: None DRAINS: None PREOPERATIVE ANTIBIOTICS: Ancef 2 gram INDICATIONS: The patient is a 62-year-old female who sustained a left ankle fracture dislocation. ORIF was recommended. The risks, benefits and expected outcomes were discussed in detail. These included but were not limited to: Infection, bleeding, injury to blood vessel or nerve, venous thromboembolism. All questions were answered to their satisfaction. Use of an program support assistant was necessary throughout the case for patient positioning and safety, soft tissue retraction and closure. PROCEDURE: The patient was placed supine on the operating room table. Spinal anesthesia was administered. The left lower extremity was prepped and draped in the usual sterile fashion. The limb was exsanguinated with the Bunny bandage. The pneumatic tourniquet was inflated to 300 mmHg. A longitudinal incision was made over the fibula. Subcutaneous dissection taken sharply to the fracture which was subperiosteal exposed. The program support assistant was used to retract the soft tissues and protect them. Fracture hematoma was evacuated with the curette and suction. The reduction was obtained with longitudinal traction and anterior force on the distal fragment with a reduction clamp. There was a marked amount of comminution at the fracture. Additionally, the superficial peroneal nerve was found wound up posterior to the fibula. It was apparent that it had been completely ruptured at the fracture site. The distal stump was dissected free, just anterior to the lateral malleolus. It was tagged with a nylon suture for subsequent repair. A Synthes multi hole locking plate was placed over the lateral cortex of the fibula. We secured the plate to the proximal fragment with a 3.5 mm cortical screw. It was secured distally with a K-wire. We filled the locking screw holes in the distal fragment. We placed an anterior to posterior lag screw to secure the fibular side of anterior tib-fib ligament. We completed the construct with 2 locking screws in the proximal fragment. This construct was evaluated with the image intensifier in the AP, mortise and lateral views. Implants appear to be well placed and the reduction of the fracture, the syndesmosis and the medial mortise all appear anatomic. We imaged the posterior malleolus fragment. This appeared to comprise a small amount of the articular surface (far less than 1/3). Additionally, it was not mobile with digital palpation and attempts to move it with a [place] elevator. There was a 1 mm step-off and a 1 mm gap. Therefore, it was left alone. We reapproximated the superficial peroneal nerve with a 4-0 Vicryl suture x2. The repair sits anterior to the fibula, right at the fracture site. Proximally, the nerve courses from anterior to posterior at the 2nd screw. The wound was irrigated with normal saline. The program support assistant closed soft tissue with a 2-0 Vicryl deep and a 3-0 Monocryl in a subcuticular fashion. Glue was used to seal the skin. The program support assistant placed a dry dressing and short leg Ryan Will splint. The tourniquet was released. Sponge and needle counts were correct x 2. The patient tolerated the procedure well. There were no apparent complications. They were carefully transferred to the hospital bed and taken to the postanesthesia care unit in satisfactory condition. PLAN: The patient will be discharged to home. They will remain strict nonweightbearing on the left lower extremity. They will continue to work on ice and elevation. They will follow up in the office next week for a wound check and three views of the ankle out of the splint prior to being seen in preparation for cast immobilization. We are planning 6 weeks nonweightbearing, cast immobilization. Then 6 weeks in a CAM walker weight-bearing as tolerates with physical therapy.
--- NOTE | 2023-03-31 10:39 | W.ANESCHARGE ---
Anesthesia Charges Start Date/Time Anesthesia Start Date: 03/31/23 Anesthesia Start Time: 07:46 Stop Date/Time Anesthesia Stop Date: 03/31/23 Anesthesia Stop Time: 10:36
--- NOTE | 2023-03-31 11:03 | P.NB_ITS ---
Nerve Block Nerve Block Time Seen by Provider: 07:26 Date Seen: 03/31/23 Type of block requested by surgeon for post-operative analgesia: popliteal Side: left Time out performed: Yes Verification of patient name: Yes Verification of date of : Yes Site marking: site marked Name of person performing procedure: Loyd Continuous monitoring Was continuous monitoring of O2 sat, B/P, conveyor monitor, recorded every 15 minutes?: Yes Procedure Checklist: sterile prep, needles and gloves Ultrasound guided. Images saved: Yes Medications given in 5ml increments after negative aspiration: Ropivicaine %: 0.5 mL: 20 Needle gauge: 22 Patient tolerated procedure well: Yes Additional comments: Needle noted adjacent to nerve Block Charges Block Charge (with Pro Fee): Sciatic Nerve Use of Ultrasound Machine for Block: Yes- US Guidance/pain block
--- NOTE | 2023-03-31 11:04 | P.NB_ITS ---
Nerve Block Nerve Block Time Seen by Provider: 07:26 Date Seen: 03/31/23 Type of block requested by surgeon for post-operative analgesia: adductor canal Side: left Time out performed: Yes Verification of patient name: Yes Verification of date of : Yes Site marking: site marked Name of person performing procedure: Loyd Continuous monitoring Was continuous monitoring of O2 sat, B/P, cardiac nurse specialist, recorded every 15 minutes?: Yes Procedure Checklist: sterile prep, needles and gloves Ultrasound guided. Images saved: Yes Medications given in 5ml increments after negative aspiration: Ropivicaine %: 0.5 mL: 20 Needle gauge: 20 Patient tolerated procedure well: Yes Additional comments: Needle noted adjacent to nerve Block Charges Block Charge (with Pro Fee): Femoral Nerve Use of Ultrasound Machine for Block: Yes- US Guidance/pain block
== END 2023-03-31 12:20 | disposition home or self-care (01) ==
PROVIDERS: PCP Family Medicine; Visit Provider Orthopaedic Surgery
PROC: (CPT 27792; principal; 2023-03-31 07:45)
DX: S82.62XA Displaced fracture of lateral malleolus of left fibula, initial encounter for closed fracture (principal); S94.22XA Injury of deep peroneal nerve at ankle and foot level, left leg, initial encounter; G89.18 Other acute postprocedural pain
CPT/HCPCS: 27792; 64999; 01480; 64445; 64447; 73600; 76000; 76942; A9270; C1713; J0690; J2250; J2405; J2704; J2795; J3010; J3490; J7120

== ENCOUNTER 2023-08-15 07:30 | Outpatient (RCR) | payer OTHER, SELFPAY | END 2023-09-13 10:37 | disposition home or self-care (01) | PROVIDERS: PCP Family Medicine; Visit Provider Physician Assistant | DX: S82.892A Other fracture of left lower leg, initial encounter for closed fracture (principal); M25.572 Pain in left ankle and joints of left foot; R53.1 Weakness; R26.81 Unsteadiness on feet; Z51.89 Encounter for other specified aftercare | CPT/HCPCS: 97110; 97112; 97116; 97140; 97162; 97164 ==

== ENCOUNTER 2023-09-13 14:07 | Outpatient (CLI) | payer OTHER, SELFPAY ==
--- NOTE | 2023-09-13 14:30 | MR_ITS ---
[address] [address] Phone:?[phone] Fax:?[phone] Referring Physician Information: Jeff Maguire M.D. [id number] [facility] [address] Phone:?[phone] Fax:?[phone] Patient:Karolina Forman D.O.B:?1960 Sex:?Female Phone:?[phone] [facility] MRN:?[id number] Exam Date:?09/13/2023 EXAM: MRI of the LEFT FOOT TALONAVICULAR JOINT THROUGH DISTAL PHALANGES CLINICAL HISTORY: Left foot pain. Second and third metatarsal shaft stress fractures. COMPARISONS: Plain radiographs 08/17/2023. TECHNICAL: MR sequences of the left foot talonavicular joint through distal phalanges: Axials: PD, STIR Coronals: T1, STIR, T2 Sagittals: PD, T2 Contrast: None Sedation: None FINDINGS: Osseous structures and joints: There is subchondral fracture of the third metatarsal head with associated articular collapse and associated exuberant bone marrow edema. Increased STIR signal and decreased T1 signal extends throughout most of the remainder of the third metatarsal, which could be secondary to the subchondral metatarsal head fracture although grade 3 osseous stress injury of the third metatarsal diaphysis may also be present. There is increased STIR signal within the fifth metatarsal head and neck. The T1 signal is normal. No dislocation is seen. There is slight volar subluxation at the second MTP joint. The second MTP joint plantar plate is not optimally evaluated by this nonarthrogram large [id number] study of the left foot. There are mild osteoarthritic changes of the navicular-medial cuneiform articulation. Chronic intra-articular fracture deformity of the distal tibial plafond, osteoarthritic changes at the medial aspect of the tibiotalar joint with associated subchondral edema-like signal, and surgical changes status post ORIF of the distal fibula are not well evaluated or completely covered in the [id number] of this dedicated study of the left foot. Ligaments: The Lisfranc and collateral ligaments are intact. Tendons: The imaged portions of the extensor and flexor tendons are unremarkable. Soft tissues: No convincing evidence of intermetatarsal Obrien neuroma, pathologic intermetatarsal bursitis, or ganglion. There is thickening of the imaged proximal portion of the central cord of the plantar aponeurosis for a length of over 2 cm measuring approximately 5 mm in thickness. IMPRESSION: 1. Subchondral fracture of the third metatarsal head with associated articular collapse and associated exuberant bone marrow edema. Bone marrow edema extends throughout most of the remainder of the third metatarsal, which could be secondary to the subchondral metatarsal head fracture although grade 3 osseous stress injury of the third metatarsal diaphysis may also be present. 2. Grade 2 osseous stress injury of the fifth metatarsal head and neck. 3. Slight volar subluxation at the second MTP joint. 4. 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 5. Thickening of the imaged proximal portion of the central cord of the plantar aponeurosis for a length of over 2 cm measuring approximately 5 mm in thickness. This may reflect chronic fasciopathy or plantar fibromatosis and is of uncertain clinical symptoms. 6. Chronic intra-articular fracture deformity of the distal tibial plafond, osteoarthritic changes at the medial aspect of the tibiotalar joint with associated subchondral edema-like signal, and surgical changes status post ORIF of the distal fibula are not well evaluated or completely covered in the [id number] of this dedicated study of the left foot. 7. No ligamentous injury or tendinous pathology of the imaged portions of the left foot. RCB Electronically signed on 09/14/2023 6:35:00 AM by Juan R Newman M.D.
== END 2023-09-13 14:08 | disposition home or self-care (01) ==
PROVIDERS: PCP Family Medicine; Visit Provider Orthopaedic Surgery
DX: M79.672 Pain in left foot (principal); S92.912A Unspecified fracture of left toe(s), initial encounter for closed fracture; S92.122A Displaced fracture of body of left talus, initial encounter for closed fracture; M19.072 Primary osteoarthritis, left ankle and foot; M84.375A Stress fracture, left foot, initial encounter for fracture
CPT/HCPCS: 73718